=== PATIENT | male | born 1935 | race Caucasian/White ===

== ENCOUNTER 2017-11-15 15:32 | Emergency (ER) | payer BC ==
[2017-11-15 16:07] VITALS: RESP 16
--- NOTE | 2017-11-15 16:56 | EDPHY ---
H & P Stated Complaint: RLE pain HPI/ROS: CHIEF COMPLAINT: Right leg pain after fall HISTORY OF PRESENT ILLNESS: The patient is and 82 y/o male complaining of right leg pain and inability to walk after a fall Monday, 4 days ago. Monday he was shoveling when he slipped and fell, falling on his right side onto the shovel. He has been unable to walk or move his right leg without pain. He has associated pain in his right ankle intermittently. He denies loss of consciousness, other areas of pain, headache, or other associated symptoms. He denies history of hypertension, cardiac issues, stroke, or diabetes. REVIEW OF SYSTEMS: A ten point review of systems was performed and is negative with the exception of the items mentioned in the HPI. Past medical history: 1. Fractured wrist in 2011 2. Fractured mandible in 2007 3. Sciatica 4. L4-L5 collapsed disks Past surgical history: 1. 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 Vital signs reviewed. Eyes: Pupils equal and round, no conjunctival injection, no discharge. Anicteric. ENT, Mouth: Mucous membranes are moist, no oropharyngeal erythema or edema. Neck: No cervical spine tenderness to palpation, no lymphadenopathy, supple. Respiratory: Lungs are clear to auscultation; no wheezes, rales, or rhonchi. Cardiovascular: Regular rate and rhythm; no murmur, rub, or gallop. Gastrointestinal: Abdomen is soft and nontender, no masses or organomegaly, bowel sounds normal. Skin: Warm and dry, no rashes on exposed skin, normal color. Back: Nontender to palpation over the thoracolumbar spine. No CVAT. Extremities: Abrasion to the lateral aspect of the right elbow. 12 inch ecchymosis on the right inner thigh up to but not into the groin. Pain with right knee flexion but able to fully flex/ext at knee and ankle. Pain with abduction of right leg. No pelvic or hip tenderness. No rotation or foreshortening. No ankle tenderness or swelling. Neurological: Alert and oriented. Moving all four extremities easily and equally. Sensation intact to light touch over both LEs. Pulses: 2+ B femoral pulses. Psychiatric: Normal affect. - Personal History Current Tetanus/Diphtheria Vaccine: No Current Tetanus Diphtheria and Acellular Pertussis (TDAP): No - Medical/Surgical History Hx Asthma: No Hx Chronic Respiratory Disease: No Hx Diabetes: No Hx Cardiac Disease: No Hx Renal Disease: No Hx Cirrhosis: No Hx Alcoholism: No Hx HIV/AIDS: No Hx Splenectomy or Spleen Trauma: No Other PMH: SHELBIE cataract surgery, plate in jaw, R wrist fx - Social History Smoking Status: Never smoked Constitutional: Initial Vital Signs Temperature (C) 37.1 C 11/15/17 16:04 Heart Rate 89 11/15/17 16:04 Respiratory Rate 16 11/15/17 16:04 Blood Pressure 112/60 11/15/17 16:04 O2 Sat (%) 94 11/15/17 16:04 O2 Delivery Mode Room Air Allergies/Adverse Reactions: No Known Allergies Allergy (Unverified 11/15/17 16:03) Home Medications: Medication Instructions Recorded NK [No Known Home Meds] 11/15/17 Medical Decision Making ED Course/Re-evaluation: The patient presents with inability to ambulate and pain in the right leg after a slip and fall 4 days ago. He has a large ecchymosis to the right inner thigh. X-ray of femer and of knee does not indicate any fracture. I will reassess the patient. I reassessed the patient and found is condition unchanged. I had him sit up and point to exactly where it hurts and when. I got him to standing with weight primarily on his left leg. He cannot weight bear on his right leg because of pain. He informs me that he is using chairs and other pieces of furniture to support himself when walkingaround his house. He slides down the stairs on his bottom and uses the hand rail to help him go from sit to stand and back. He is using crutches when outside of his home. He lives alone and I worry about his safety. He is offered hospitalization, but refuses. He feels that he will be safe at home. He does not want an assessment of his ability to walk with crutches while in the ED. He understands that he can return if he finds that he can't manage at home. I feel that his pain is secondary to ecchymosis, muscle bruising. No evidence of fracture or dislocation of hip, thigh, knee, lower leg, ankle. He is not anticoagulated. I do not suspect muscle or tendon rupture. Departure - Departure Disposition: Home, Routine, Self-Care Clinical Impression: Leg pain, right Condition: Good Instructions: Crutch Instructions (ED), Contusion in Adults (ED), Leg Pain (ED) Additional Instructions: Try taking ibuprofen 400 mg every eight hours--see if this helps with your pain. You can buy this over the counter. Please call the orthopedic surgeon, Dr. Thomas, tomorrow and schedule an appointment. Let the office staff know that you were seen in the emergency department for leg pain related to a fall. Make sure they know that you are having trouble walking. Be careful with your crutches. If you are getting worse--more pain, new weakness, new numbness--please return for another evaluation. Referrals: Michelle Hernandez MD [Primary Care Provider] - As per Instructions Elliot Thomas MD [Medical Doctor] - As per Instructions Report Scribed for: Marj Padilla Report Scribed by: Blanche Suazo Date of Report: 11/15/17 Time of Report: 17:35 Physician Review and Approval Statement: 11/15/17 16:56 Portions of this note were transcribed by the medical transcription. I, Dr. Marj Padilla, personally performed the history, physical exam, and medical decision- making; and confirmed the accuracy of the information in the transcribed note.
[2017-11-15 21:38] VITALS: BP 112/65; PULSE 95; TEMP 98.2; O2SAT 91
== END 2017-11-15 21:30 | disposition home or self-care (01) ==
DX: S89.91XA Unspecified injury of right lower leg, initial encounter (principal); W01.0XXA Fall on same level from slipping, tripping and stumbling without subsequent striking against object, initial encounter; Y99.8 Other external cause status; Y93.H1 Activity, digging, shoveling and raking

== ENCOUNTER 2017-12-06 11:29 | Outpatient (CLI) | payer BC, OTHER ==
[2017-12-06 12:39] VITALS: PULSE 99
[2017-12-06] MEDS ORDERED: fentaNYL 100 MCG/2 ML INJ IVP PRN (12:46)
[2017-12-06] MEDS ORDERED: FLUMAZENIL 0.5 MG/5 ML MDV IVP PRN (12:46)
[2017-12-06] MEDS ORDERED: NALOXONE HCL 0.4 MG/ML INJ IVP PRN (12:46)
[2017-12-06] MEDS ORDERED: MIDAZOLAM 2 MG/2 ML VIAL IVP PRN (12:46)
[2017-12-06] MEDS ORDERED: NS 1,000 ML IV SCH (13:00)
--- NOTE | 2017-12-06 13:15 | PDGENHP ---
History & Physical Chief Complaint: Right leg pain. Needs sedation for MRI History of Present Illness: Right leg pain. Needs sedation for MRI Pertinent Past, Social, Family History: No additional medical problems Relevant Physical Exam: Clear lungs, RRR Cardiorespiratory Assessment: Clear lungs, RRR
--- NOTE | 2017-12-06 13:17 | PDPROPOC ---
Sedation Plan of Care ASA Classification: ASA 2 Planned drugs: fentanyl, midazolam (Attempt to do with Fentanyl only) Mallampati Score: Class 2 Mallampati Reference Image: Patient passed 3-3-2 rule?: Yes
[2017-12-06] MEDS ORDERED: ACETAMINOPHEN 325 MG TAB PO PRN (15:58)
[2017-12-06] MEDS ORDERED: ONDANSETRON 4 MG/2 ML VIAL IVP PRN (15:58)
[2017-12-06 16:18] VITALS: BP 86/57; RESP 18; O2SAT 97
[2017-12-06 16:20] VITALS: TEMP 97.2
[2017-12-07] MEDS ORDERED: VITAMIN D3 PO SCH (09:00)
[2017-12-07] MEDS ORDERED: VITAMIN B12 1000 MCG PO SCH (09:00)
== END 2017-12-06 16:20 | disposition home or self-care (01) ==
LOC: FIMAGING 11:29
PROVIDERS: ATTEND Physician Assistant
DX: S32.414A Nondisplaced fracture of anterior wall of right acetabulum, initial encounter for closed fracture (principal); S32.511A Fracture of superior rim of right pubis, initial encounter for closed fracture; S73.191A Other sprain of right hip, initial encounter; M24.151 Other articular cartilage disorders, right hip
CPT/HCPCS: J2250; J2310; J3010

== ENCOUNTER → 2017-12-13 | Outpatient (CLI) | payer BC, OTHER | LOC: FIMAGING 14:28 | PROVIDERS: ATTEND Orthopaedic Surgery | DX: S32.464 Nondisplaced associated transverse-posterior fracture of right acetabulum (principal); S32.591D Other specified fracture of right pubis, subsequent encounter for fracture with routine healing ==